=== PATIENT | male | born 1975 | race Caucasian/White ===

== ENCOUNTER 2021-12-13 06:27 | Day surgery (SDC) | payer BC, OTHER ==
[2021-12-08 14:45] VITALS: BMI 31.8
[2021-12-13] MEDS ORDERED: BUPIVACAINE HCL/EPINEPHRINE/PF 30 ML VIAL IJ ONE (07:08)
[2021-12-13] MEDS ORDERED: MIDAZOLAM HCL 2 MG/2 ML SINGLE DOSE VIAL ONE (07:36)
[2021-12-13] MEDS ORDERED: DEXAMETHASONE SOD PHOSPHATE 10 MG/1 ML VIAL ONE (07:42)
[2021-12-13] MEDS ORDERED: ROPIVACAINE HCL/PF 100 MG/20 ML VIAL ONE (07:43)
[2021-12-13] MEDS ORDERED: PROPOFOL 20 ML ONE ×4 (08:10→09:01)
[2021-12-13] MEDS ORDERED: ONDANSETRON 4 MG/2 ML VIAL ONE (08:15)
[2021-12-13] MEDS ORDERED: DEXAMETHASONE SOD PHOSPHATE 4 MG/1 ML VIAL ONE (08:15)
[2021-12-13] MEDS ORDERED: ceFAZolin SODIUM 1 GM VIAL ONE (08:15)
[2021-12-13] MEDS ORDERED: BUPIVACAINE HCL/PF 2.5 MG/ML - 30 ML VIAL IJ ONE (08:21)
[2021-12-13] MEDS ORDERED: oxyCODONE HCL 5 MG TABLET PO PRN (09:51)
[2021-12-13] MEDS ORDERED: HYDROmorphone HCL CARPU-JECT 2 MG/1 ML DISP.SYRIN IVPUSH ONE (09:51)
[2021-12-13] MEDS ORDERED: ONDANSETRON 4 MG/2 ML VIAL IVPUSH PRN (09:51)
[2021-12-13] MEDS ORDERED: FENTANYL CITRATE/PF 50 MCG/ML VIAL ONE (10:00)
[2021-12-13 10:12] VITALS: RESP 18
[2021-12-13 10:30] VITALS: TEMP 97.7
[2021-12-13 11:01] VITALS: BP 160/92; PULSE 78
== END 2021-12-13 11:18 | disposition home or self-care (01) ==
LOC: FASU 06:27
PROVIDERS: ATTEND Orthopaedic Surgery Hand Surgery
PROC: 0LM40ZZ Reattachment of Left Upper Arm Tendon, Open Approach (ICD-10-PCS; principal; 2021-12-13 08:32)
DX: S46.211A Strain of muscle, fascia and tendon of other parts of biceps, right arm, initial encounter (principal); X58.XXXA Exposure to other specified factors, initial encounter; Y93.9 Activity, unspecified; Y92.9 Unspecified place or not applicable
CPT/HCPCS: 94760; J1100